=== PATIENT | male | born 1980 | race Two or more races ===

== ENCOUNTER 2021-01-10 10:31 | Emergency (ER) | payer OTHER ==
[2021-01-10] MEDS ORDERED: KEFLEX750 MG PO (12:21)
[2021-01-10] MEDS ORDERED: GARAMYCIN OPTH D5 ML OD (12:21)
== END 2021-01-10 12:25 | disposition home or self-care (01) ==
LOC: FER 10:31
DX: S91.031A Puncture wound without foreign body, right ankle, initial encounter (principal); Z23 Encounter for immunization; W20.8XXA Other cause of strike by thrown, projected or falling object, initial encounter; Y92.69 Other specified industrial and construction area as the place of occurrence of the external cause; Y99.0 Civilian activity done for income or pay
CPT/HCPCS: 73630; 90471; 90715